=== PATIENT | male | born 1975 | race Caucasian/White ===

== ENCOUNTER 2020-02-27 09:40 | Observation (INO) | payer OTHER ==
[2020-02-27 10:04] LABS: Hematocrit 45.2 % (42-50); Mean Cell Volume 89.2 fl (78-100); Mean Corpuscular Hemoglobin 29.6 pg (26-32); Mean Corpuscular Hgb Concent. 33.2 g/dl (32-36); Mean Platelet Volume 10.5 fl (7.5-11.0); Platelet Count 219 K/mm3 (150-450); Red Blood Count 5.07 M/mm3 (4.1-5.6); Red Cell Distribution Width 13.5 % (11.5-14.0)
[2020-02-27] MEDS ORDERED: TYLENOL EXTRA STRENGTH 500 MG PO PRN (10:10)
[2020-02-27 10:27] LABS: ANION GAP 11.4 MEQ/L (5-15); BLOOD UREA NITROGEN 21 mg/dL (9-20); CHLORIDE 108 mmol/L (98-107); Calcium 9.4 mg/dL (8.4-10.2); Carbon Dioxide 26 mmol/L (22-30); Creatinine 1 0.68 mg/dL (0.66-1.25); Glucose 100 mg/dL (74-106); Potassium 4.6 mmol/L (3.5-5.1); SODIUM 141 mmol/L (137-145)
[2020-02-27] MEDS: Sodium Chloride 0.9% 1000 ML 1,000 ML IV SCH (10:33)
[2020-02-27] MEDS: Pepcid 20 MG PO SCH (10:33)
[2020-02-27] MEDS: ENOXAPARIN SODIUM SQ SCH ×2 (10:33→21:38)
[2020-02-27] MEDS: HYDROXYCHLOROQUINE SULFATE PO SCH ×2 (13:21→21:38)
[2020-02-27] MEDS: SYNTHROID 100 MCG PO SCH (13:21)
[2020-02-27] MEDS: Lexapro 10 MG PO SCH (13:21)
[2020-02-27 19:27] VITALS: O2SAT 98
[2020-02-28] MEDS: Sodium Chloride 0.9% 1000 ML 1,000 ML IV SCH (00:57)
[2020-02-28 06:25] LABS: Hematocrit 41.7 % (42-50); Hemoglobin 13.8 gm/dl (12.5-18.0); Mean Cell Volume 90.3 fl (78-100); Mean Corpuscular Hemoglobin 29.9 pg (26-32); Mean Corpuscular Hgb Concent. 33.1 g/dl (32-36); Mean Platelet Volume 10.4 fl (7.5-11.0); Platelet Count 195 K/mm3 (150-450); Red Blood Count 4.62 M/mm3 (4.1-5.6); Red Cell Distribution Width 13.7 % (11.5-14.0); White Blood Count 4.5 K/mm3 (4.0-10.5)
[2020-02-28 06:29] LABS: ANION GAP 9.5 MEQ/L (5-15); BLOOD UREA NITROGEN 16 mg/dL (9-20); CHLORIDE 108 mmol/L (98-107); Calcium 8.8 mg/dL (8.4-10.2); Carbon Dioxide 27 mmol/L (22-30); Creatinine 1 0.75 mg/dL (0.66-1.25); Glucose 95 mg/dL (74-106); Potassium 4.6 mmol/L (3.5-5.1); SODIUM 140 mmol/L (137-145)
[2020-02-28 07:45] VITALS: BP 115/68; PULSE 52
[2020-02-28] MEDS: ENOXAPARIN SODIUM SQ SCH (09:18)
[2020-02-28] MEDS: HYDROXYCHLOROQUINE SULFATE PO SCH (09:19)
[2020-02-28] MEDS: SYNTHROID 100 MCG PO SCH (09:19)
[2020-02-28] MEDS: Pepcid 20 MG PO SCH (09:19)
[2020-02-28] MEDS: Lexapro 10 MG PO SCH (09:19)
== END 2020-02-28 11:22 | disposition home or self-care (01) ==
LOC: MED SURG 09:45
PROVIDERS: ADMIT Family Medicine; ATTEND Family Medicine
DX: I82.409 Acute embolism and thrombosis of unspecified deep veins of unspecified lower extremity (principal)
CPT/HCPCS: 36415; 80048; 85027; G0378; J1650; A9270-GY

== ENCOUNTER 2022-11-11 15:04 | Emergency (ER) | payer OTHER ==
[2022-11-11] MEDS ORDERED: TORAdol 30 mg Injection IM ONE (15:16)
[2022-11-11] MEDS ORDERED: TORAdol 30 mg Injection ONE (15:17)
[2022-11-11 15:22] VITALS: O2SAT 97
--- NOTE | 2022-11-11 15:22 | ERPHSYRPT ---
- History of Present Illness Time Seen by Provider: 11/11/22 15:17 Source: patient Exam Limitations: no limitations Physician History: Patient c/o left lower extremity swelling and localized pain. + h/o VTE on Xarelto, No clot on anticoagulation No recent hospitalization or major surgery. No recent trauma. No recent traveling. Denies CP, palpitations, SOB Method of Injury: unknown Occurred: days ago (2) Quality: constant, throbbing Severity of Pain-Max: moderate Severity of Pain-Current: moderate Lower Extremities Pain: other: right (lower leg) Modifying Factors: Improves With: nothing Associated Symptoms: unable to bear weight Allergies/Adverse Reactions: No Known Drug Allergies Allergy (Verified 11/11/22 15:12) Home Medications: Hydroxychloroquine Sulfate 200 mg PO BID 02/27/20 [History] Levothyroxine Sodium 100 Mcg [Synthroid 100 Mcg] 200 mcg PO DAILY 02/27/20 [History] Rivaroxaban [Xarelto] 20 mg PO DAILY 11/11/22 [History] - Review of Systems Constitutional: No Symptoms Eyes: No Symptoms Ears, Nose, & Throat: No Symptoms Respiratory: No Symptoms Cardiac: No Symptoms Abdominal/Gastrointestinal: No Symptoms Genitourinary Symptoms: No Symptoms Musculoskeletal: Joint Pain, Joint Swelling, No Fall, No Injury Skin: No Symptoms Neurological: No Symptoms Psychological: No Symptoms Endocrine: No Symptoms Hematologic/Lymphatic: Blood Clots (hx on Xarelto) Immunological/Allergic: No Symptoms All Other Systems: Reviewed and Negative - Past Medical History Pertinent Past Medical History: Yes Neurological History: No Pertinent History ENT History: No Pertinent History Cardiac History: No Pertinent History Respiratory History: No Pertinent History Endocrine Medical History: No Pertinent History Musculoskeletal History: No Pertinent History GI Medical History: No Pertinent History History: No Pertinent History Psycho-Social History: Depression Male Reproductive Disorders: No Pertinent History Other Medical History: LUPUS, DVTs - Past Surgical History Past Surgical History: Yes Neuro Surgical History: No Pertinent History Cardiac: No Pertinent History Respiratory: No Pertinent History Gastrointestinal: No Pertinent History Genitourinary: No Pertinent History Musculoskeletal: Orthopedic Surgery Male Surgical History: No Pertinent History Other Surgical History: finger surgeries - Social History Smoking Status: Former smoker Drug Use: none - Nursing Vital Signs Nursing Vital Signs: Initial Vital Signs Temperature 97.4 F 11/11/22 15:15 Pulse Rate 62 11/11/22 15:15 Respiratory Rate 16 11/11/22 15:15 Blood Pressure 161/94 11/11/22 15:15 O2 Sat by Pulse Oximetry 97 11/11/22 15:15 Pain Scale Pain Intensity 5 - Physical Exam General Appearance: no apparent distress Cardiovascular/Respiratory Exam: regular rate/rhythm Legs Exam: right leg: pain (w/ dorsiflexion), soft tissue tenderness, swelling Neuro/Tendon Exam: normal sensation, normal motor functions, normal tendon functions, responds to pain, no evidence tendon injury Mental Status Exam: alert, oriented x 3, cooperative Skin Exam: normal color, warm, dry SpO2 Interpretation: normal O2 Delivery: Room Air - Course Nursing assessment & vital signs reviewed: Yes - Radiology Ultrasound Exam Right Venous Lower Extremity Ultrasound: tele radiology report, negative Ordered Tests: Active Orders 24 hr Category Date Time Status VENOUS UNILAT/LIMITED EXTREMIT [US] Stat Exams 11/11/22 15:14 Ordered CBC Stat Lab 11/11/22 15:15 Completed CMP Stat Lab 11/11/22 15:39 Completed D-DIMER QUANTITATIVE Stat Lab 11/11/22 15:39 Completed Erythrocyte Sedimentation Rate Stat Lab 11/11/22 15:15 Completed PT INR [PROTIME WITH INR] Stat Lab 11/11/22 15:39 Completed PTT Stat Lab 11/11/22 15:39 Completed Medication Summary Discontinued Medications Generic Name Dose Route Start Last Admin Trade Name Ozq PRN Reason Stop Dose Admin Ketorolac Tromethamine 60 mg 11/11/22 15:16 11/11/22 15:19 Ketorolac Tromethamine 30 Mg/Ml Inj IM 11/11/22 15:17 60 mg STAT ONE Administration Ketorolac Tromethamine Confirm 11/11/22 15:17 Ketorolac Tromethamine 30 Mg/Ml Inj Administered 11/11/22 15:18 Dose 60 mg .ROUTE .STK-MED ONE Lab/Rad Data: Laboratory Result Diagrams 11/11/22 15:15 11/11/22 15:39 Laboratory Results 11/11/22 11/11/22 11/11/22 Range/Units 15:39 15:39 15:15 WBC 4.8 (4.0-10.5) x10^3/uL RBC 4.25 (4.1-5.6) x10^6/uL Hgb 13.4 (12.5-18.0) g/dL Hct 40.6 L (42-50) % MCV 95.5 (78-100) fL MCH 31.5 (26-32) pg MCHC 33.0 (32-36) g/dL RDW 13.2 (11.5-14.0) % Plt Count 238 (150-450) x10^3/uL MPV 9.8 (7.5-11.0) fL ESR 13 (0-15) mm/hr PT 12.8 H (9.4-12.5) SECONDS INR 1.19 (0.8-3.0) APTT 92.6 H (25.1-36.5) SECONDS D-Dimer 0.35 (0.0-0.50) mg/L Sodium 144 (137-145) mmol/L Potassium 4.4 (3.5-5.1) mmol/L Chloride 111 H (98-107) mmol/L Carbon Dioxide 26 (22-30) mmol/L Anion Gap 11.7 (5-15) MEQ/L BUN 26 H (9-20) mg/dL Creatinine 0.92 (0.66-1.25) mg/dL Estimated GFR > 60.0 ML/MIN Glucose 102 (74-106) mg/dL Calcium 8.6 (8.4-10.2) mg/dL Total Bilirubin 0.30 (0.2-1.3) mg/dL AST 55 (17-59) U/L ALT 60 H (0-50) U/L Alkaline Phosphatase 66 (38-126) U/L Serum Total Protein 7.4 (6.3-8.2) g/dL Albumin 4.3 (3.5-5.0) g/dL - Progress Progress: improved Progress Note: 11/11/22 16:47 No DVT. Exam consistent w/ extensor digitorum longus tendonitis. Placed patient in rekha wrap and encouraged patient to ice 4-5x per day for 10 minutes and begin ROM and strengthening exercises. Will send Naproxen 550mg BID x 10 days and advised to f/u w/ foot/ankle. Counseled pt/family regarding: lab results, diagnosis, need for follow-up, rad results - Departure Departure Disposition: Home Clinical Impression: Strain of extensor digitorum tendon, Right leg pain, Right leg swelling Condition: Good Critical Care Time: No Referrals: ORQUIDEA ALMEIDA II [Primary Care Provider] - Follow up/PCP as directed Instructions: Foot Sprain (DC) Prescriptions: Naproxen Sodium 550 mg PO BID 10 Days #20 tablet
[2022-11-11 15:37] LABS: Hematocrit 40.6 % (42-50); Hemoglobin 13.4 g/dL (12.5-18.0); Mean Cell Volume 95.5 fL (78-100); Mean Corpuscular Hemoglobin 31.5 pg (26-32); Mean Platelet Volume 9.8 fL (7.5-11.0); Platelet Count 238 x10^3/uL (150-450); Red Blood Count 4.25 x10^6/uL (4.1-5.6); Red Cell Distribution Width 13.2 % (11.5-14.0); White Blood Count 4.8 x10^3/uL (4.0-10.5)
[2022-11-11 16:08] LABS: ALBUMIN 4.3 g/dL (3.5-5.0); ALKALINE PHOSPHATASE 66 U/L (38-126); ANION GAP 11.7 MEQ/L (5-15); BLOOD UREA NITROGEN 26 mg/dL (9-20); CHLORIDE 111 mmol/L (98-107); Calcium 8.6 mg/dL (8.4-10.2); Carbon Dioxide 26 mmol/L (22-30); Creatinine 1 0.92 mg/dL (0.66-1.25); EST GLOMERULAR FILTRATION RATE > 60.0 ML/MIN; Glucose 102 mg/dL (74-106); Potassium 4.4 mmol/L (3.5-5.1); SGOT/AST 55 U/L (17-59); SGPT/ALT 60 U/L (0-50); SODIUM 144 mmol/L (137-145); Total Protein 7.4 g/dL (6.3-8.2)
[2022-11-11 16:12] LABS: D-DIMER QUANTITATIVE 0.35 mg/L (0.0-0.50); INR 1.19 (0.8-3.0); PROTIME 12.8 SECONDS (9.4-12.5); PTT 92.6 SECONDS (25.1-36.5)
[2022-11-11 16:19] VITALS: BP 127/89; PULSE 57
[2022-11-11 16:29] LABS: Erythrocyte Sedimentation Rate 13 mm/hr (0-15)
--- NOTE | 2022-11-13 06:39 | XRAY ---
Indication: Pain and swelling. Two-dimensional sonogram and color Doppler imaging of the major venous vessels of the right leg performed. Comparison: None No thrombus seen in the examined deep venous vessels of the right leg including greater saphenous vein. Veins demonstrate normal compressibility. Venous waveforms are normal with and without augmentation. Impression: Right leg negative for DVT. Comment: Preliminary report was given.
== END 2022-11-11 17:00 | disposition home or self-care (01) ==
LOC: ED 15:04
DX: S96.111A Strain of muscle and tendon of long extensor muscle of toe at ankle and foot level, right foot, initial encounter (principal); M79.604 Pain in right leg; R60.0 Localized edema; Z79.01 Long term (current) use of anticoagulants; Z79.899 Other long term (current) drug therapy
CPT/HCPCS: 36415; 80053; 85027; 85379; 85610; 85652; 85730; 93971; 96372; 99283; J1885